=== PATIENT | female | born 1995 | race Caucasian/White ===

== ENCOUNTER 2017-06-14 02:06 | Emergency (ER) | payer OTHER ==
[~2017-06-14] VITALS: Ht 160 cm; Wt 53.4 kg
[~2017-06-14 02:06] MED LIST: INSU100C4 MC; ZOL50T PO
[2017-06-14] MEDS ORDERED: insulin Lispro (HumaLOG) vial - multi-dose SQ STA (02:24)
[2017-06-14] MEDS ORDERED: ondansetron 4mg rapidly disintigrating tab PO ONE (02:25)
[2017-06-14] MEDS ORDERED: insulin Lispro (HumaLOG) vial - multi-dose SQ ONE (02:37)
[2017-06-14 02:40] LABS: BASOPHILS # (AUTO) 0.1 X10'3 (0-0.2); BASOPHILS % (AUTO) 0.6 % (0-1); EOSINOPHILS # (AUTO) 0.2 X10'3 (0-0.9); EOSINOPHILS % (AUTO) 1.9 % (0-6); HEMATOCRIT 38.8 % (35.0-45.0); HEMOGLOBIN 13.3 g/dl (12.0-16.0); LYMPHOCYTES # (AUTO) 3.7 X10'3 (1.1-4.8); MEAN CORPUSCULAR HEMOGLOBIN 29.6 PG (27.0-31.0); MEAN CORPUSCULAR HGB CONC 34.2 % (33.0-36.5); MEAN CORPUSCULAR VOLUME 86.4 FL (78-98); MEAN PLATELET VOLUME 8.1 FL (7.4-10.4); MONOCYTES # (AUTO) 0.8 X10'3 (0-0.9); MONOCYTES % (AUTO) 8.6 % (2-12); NEUTROPHILS # (AUTO) 4.3 X10'3 (1.8-7.7); NEUTROPHILS % (AUTO) 47.9 % (42-75); PLATELET COUNT 370 X10'3 (140-440); RED BLOOD COUNT 4.48 X10'6 (4.20-5.60); RED CELL DISTRIBUTION WIDTH 13.6 % (11.5-14.5); WHITE BLOOD COUNT 9.1 X10'3 (4.5-11.0)
[2017-06-14 02:54] LABS: ALANINE AMINOTRANSFERASE 29 U/L (12-78); ALBUMIN/GLOBULIN RATIO 1.1 (1.1-1.5); ALKALINE PHOSPHATASE 127 IU/L (46-116); ANION GAP 12 (8-16); ASPARTATE AMINO TRANSFERASE 12 U/L (10-37); BILIRUBIN,TOTAL 0.4 MG/DL (0.1-1.0); BLOOD UREA NITROGEN 15 MG/DL (7-18); BUN/CREATININE RATIO 15.6 (6.6-38.0); CALCIUM 9.2 MG/DL (8.5-10.1); CHLORIDE 95 MMOL/L (99-107); CREATININE 0.96 MG/DL (0.40-0.90); MAGNESIUM 1.7 MG/DL (1.5-2.4); POTASSIUM 4.5 MMOL/L (3.5-5.1); SODIUM 131 MMOL/L (135-145); TOTAL CARBON DIOXIDE 23.7 MMOL/L (24-32); TOTAL PROTEIN 7.5 G/DL (6.4-8.2); eGFR 71 ML/MIN
[2017-06-14 02:58] LABS: GLUCOSE 670 MG/DL (70-104)
[2017-06-14] MEDS ORDERED: insulin Lispro (HumaLOG) vial - multi-dose SQ SCH (03:40)
[2017-06-14] MEDS ORDERED: INSU100V13 SQ (04:44)
[2017-06-14 04:49] VITALS: BP 106/63
== END 2017-06-14 04:51 | disposition home or self-care (01) ==
LOC: ER 02:07
DX: E10.65 Type 1 diabetes mellitus with hyperglycemia (principal); Z96.41 Presence of insulin pump (external) (internal); Z79.4 Long term (current) use of insulin
CPT/HCPCS: 36415; 80053; 82009; 82948; 83735; 85025; 96372; 99284; J7030

== ENCOUNTER 2017-07-11 08:03 | Emergency (ER) | payer OTHER ==
[~2017-07-11] VITALS: Ht 162.6 cm; Wt 50.0 kg
[~2017-07-11 08:03] MED LIST changes: +INSU100V13 SQ; +ONDA8TAB9 PO; +SULF1TAB49 PO
[2017-07-11 08:32] LABS: BASOPHILS % (AUTO) 0.2 % (0-1); EOSINOPHILS # (AUTO) 0.1 X10'3 (0-0.9); EOSINOPHILS % (AUTO) 2.1 % (0-6); HEMATOCRIT 37.8 % (35.0-45.0); LYMPHOCYTES # (AUTO) 3.1 X10'3 (1.1-4.8); LYMPHOCYTES % (AUTO) 44.3 % (21-51); MEAN CORPUSCULAR HEMOGLOBIN 29.3 PG (27.0-31.0); MEAN CORPUSCULAR HGB CONC 34.5 % (33.0-36.5); MEAN PLATELET VOLUME 7.2 FL (7.4-10.4); MONOCYTES # (AUTO) 0.6 X10'3 (0-0.9); MONOCYTES % (AUTO) 8.5 % (2-12); NEUTROPHILS # (AUTO) 3.1 X10'3 (1.8-7.7); NEUTROPHILS % (AUTO) 44.9 % (42-75); PLATELET COUNT 451 X10'3 (140-440); RED BLOOD COUNT 4.45 X10'6 (4.20-5.60); RED CELL DISTRIBUTION WIDTH 13.8 % (11.5-14.5)
[2017-07-11 08:40] LABS: PROTHROMBIN TIME 10.2 SECONDS (9.0-12.0)
[2017-07-11 08:53] LABS: ALANINE AMINOTRANSFERASE 32 U/L (12-78); ALBUMIN 3.2 G/DL (3.4-5.0); ALBUMIN/GLOBULIN RATIO 0.9 (1.1-1.5); ALKALINE PHOSPHATASE 47 IU/L (46-116); ANION GAP 12 (8-16); ASPARTATE AMINO TRANSFERASE 19 U/L (10-37); BILIRUBIN,TOTAL 0.3 MG/DL (0.1-1.0); BLOOD UREA NITROGEN 7 MG/DL (7-18); BUN/CREATININE RATIO 10.6 (6.6-38.0); CALCIUM 8.3 MG/DL (8.5-10.1); CHLORIDE 107 MMOL/L (99-107); CREATININE 0.66 MG/DL (0.40-0.90); GLUCOSE 121 MG/DL (70-104); POTASSIUM 3.9 MMOL/L (3.5-5.1); SODIUM 140 MMOL/L (135-145); TOTAL PROTEIN 6.9 G/DL (6.4-8.2); eGFR > 90 ML/MIN
[2017-07-11 08:59] LABS: URINE HCG NEGATIVE (NEG)
[2017-07-11 09:03] LABS: CLARITY,URINE SLIGHTLY CLOUDY (Clear); COLOR,URINE YELLOW (Yellow); GLUCOSE, URINE NEGATIVE (Neg); KETONES,URINE NEGATIVE (Neg); LEUKOCYTE ESTERASE ,URINE NEGATIVE (Neg); NITRITES, URINE NEGATIVE (Neg); OCCULT BLOOD,URINE NEGATIVE (Neg); PROTEIN,URINE NEGATIVE (Neg); UA COLLECTION TYPE CLN CATCH MIDSTREAM; UROBILINOGEN,URINE 0.2 E.U/dL (0.2-1.0)
[2017-07-11 09:13] LABS: BACTERIA,URINE FEW /HPF (Neg); CAL OXALATE CRYSTALS 2+ /HPF (NEGATIVE); MUCUS STRANDS MODERATE /LPF (Neg); SQUAMOUS EPITHELIAL CELL,UR MANY /LPF (FEW)
[2017-07-11 09:14] LABS: RBC,URINE 0-2 /HPF (0-2); WBC,URINE 0-4 /HPF (0-4)
[2017-07-11] MEDS ORDERED: ACET1TAB12 PO (11:51)
[2017-07-11 12:00] VITALS: BP 112/74
== END 2017-07-11 12:00 | disposition home or self-care (01) ==
LOC: ER 08:03
DX: R10.30 Lower abdominal pain, unspecified (principal); R19.7 Diarrhea, unspecified; E11.9 Type 2 diabetes mellitus without complications; Z79.4 Long term (current) use of insulin; Z79.899 Other long term (current) drug therapy
CPT/HCPCS: 36415; 80053; 81001; 81025; 85025; 85610; 99284

== ENCOUNTER 2017-09-14 16:17 | Emergency (ER) | payer OTHER ==
[~2017-09-14] VITALS: Ht 5283.9 cm; Wt 51.0 kg
[~2017-09-14 16:17] MED LIST changes: +ACET1TAB12 PO; -SULF1TAB49 PO
[2017-09-14 16:22] VITALS: BP 124/81
[2017-09-14] MEDS ORDERED: insulin regular, human 10 units/0.1 ml syringe SQ ONE (17:20)
[2017-09-14] MEDS ORDERED: INSU100C4 MC (17:22)
== END 2017-09-14 17:44 | disposition home or self-care (01) ==
LOC: ER 16:18
DX: E10.65 Type 1 diabetes mellitus with hyperglycemia (principal); Z79.4 Long term (current) use of insulin; Z76.0 Encounter for issue of repeat prescription; Z79.899 Other long term (current) drug therapy
CPT/HCPCS: 82948; 96372; 99283; J1815

== ENCOUNTER 2024-10-10 03:30 | Emergency (ER) | payer OTHER ==
[~2024-10-10] VITALS: Ht 162.6 cm; Wt 35.8 kg
[~2024-10-10 03:30] MED LIST changes: +SERT-153 PO; -ZOL50T PO
[2024-10-10] MEDS: LORazepam 1 MG tablet PO ONE (04:48)
[2024-10-10] MEDS: ketorolac trometh 30MG/ML vial 30 MG/ML VIAL IM ONE (04:48)
[2024-10-10] MEDS: ondansetron/PF 4mg/2ml inj IV ONE (04:58)
--- NOTE | 2024-10-10 05:05 | Physician Documentation ---
History of Present Illness ~ Chief Complaint: Abdominal Pain Stated Complaint: ABDOMINAL PAIN Time Seen by MD: 04:44 Primary Medical Doctor: NONE HPI 29 year old female reports abdominal cramping, diarrhea. She also reports she is on her menstrual period. Denies fever, reports +nausea. Medication Reconciliation Allergies: Coded Allergies: No Known Allergies (Unverified , 10/10/24) Scheduled Acetaminophen with Codeine (Tylenol with Codeine #3 Tablet), 1 TAB PO Q4HPRN Insulin Aspart (Novolog), 1 UNITS SQ UD Insulin Aspart (Novolog), 50 UNIT MC DAILY Ondansetron (Zofran Odt), 1 TAB PO Q8H Sertraline HCl (Sertraline HCl), 1 TABLET PO QPM, (Reported) Past Medical History Past Medical History: UTI, Diabetes Past Surgical History: Alcohol Use: None Drug Use: none Lives with: Mother, Father Lives In: Home Occupation: student Review of Systems All Other Systems at this time: Reviewed and Negative Physical Exam Vital Signs: RN Vital Signs have been reviewed: Yes, Temperature: 96.8, Source: Temporal, Heart Rate: 88, Respiratory Rate: 18, BP: 146/63, Pulse Oximetry: 99, Weight: 35.800 Physical Exam HEENT: PERRL, moist oral mucosa, EOMI Pulmonary: No respiratory distress CTAB Cardiac: RRR, no murmur, rub or gallop GI: nondistended, soft, diffusely tender, no guarding, no rebound MSK: no deformity Skin: w/d/i, no rash Neuro: alert, nonfocal Psych: normal affect Progress Results/Orders Results/Orders Orders - SHARONA UNDERWOOD MD Urinalysis, Cult If Indicated (10/10/24 03:55) Hcg, Ur Ql (10/10/24 03:55) Normal Saline 1000ml (Sodium Chloride 10 (10/10/24 05:45) Ct Abdomen Pelvis (10/10/24 05:44) Completed Orders - SHARONA UNDERWOOD MD Cbc/Diff (10/10/24 03:55) BMP (10/10/24 03:55) Lipase (10/10/24 03:55) CMP (10/10/24 03:55) Ketorolac Trometh 30mg/Ml Vial (Toradol (10/10/24 04:15) Lorazepam Tablet (Ativan Tablet) (10/10/24 04:45) Ondansetron Inj. (Zofran 4mg/2ml Vial) (10/10/24 04:55) Medications Received in ER Medications (Trade) Dose Ordered Sig/Juancho Route PRN Reason Start Time Stop Time Status Last Admin Dose Admin (Toradol inj. 30mg/ml) 30 mg ONCE ONCE IM 10/10/24 04:15 10/10/24 04:16 DC 10/10/24 04:48 30 MG (Ativan tablet) 1 mg ONCE ONCE PO 10/10/24 04:45 10/10/24 04:46 DC 10/10/24 04:48 1 MG (Zofran 4mg/2ml vial) 4 mg ONCE ONCE IV 10/10/24 04:55 10/10/24 04:56 DC 10/10/24 04:58 4 MG Vital Signs 10/10/24 10/10/24 10/10/24 10/10/24 03:53 04:48 05:43 05:44 Temp 96.8 Pulse 88 98 Resp 15 18 15 18 B/P (MAP) 146/63 93/54 (67) Pulse Ox 99 97 Laboratory Tests Test 10/10/24 04:55 White Blood Count 18.4 H Red Blood Count 4.45 Hemoglobin 13.1 Hematocrit 39.0 Mean Corpuscular Volume 87.6 Mean Corpuscular Hemoglobin 29.3 Mean Corpuscular Hemoglobin Concent 33.5 Red Cell Distribution Width 12.9 Platelet Count 431 Mean Platelet Volume 8.4 Neutrophils (%) (Auto) 83.2 H Lymphocytes (%) (Auto) 10.5 L Monocytes (%) (Auto) 5.8 Eosinophils (%) (Auto) 0.2 Basophils (%) (Auto) 0.3 Neutrophils # (Auto) 15.3 H Lymphocytes # (Auto) 1.9 Monocytes # (Auto) 1.1 H Eosinophils # (Auto) 0.0 Basophils # (Auto) 0.1 CBC Comment Sodium Level 144 Potassium Level 4.0 Chloride Level 106 Carbon Dioxide Level 25.3 Anion Gap 13 Blood Urea Nitrogen 12 Creatinine 0.87 Estimated GFR/1.73 m2 76 BUN/Creatinine Ratio 13.8 Glucose Level 123 H Calcium Level 9.7 Total Bilirubin 0.5 Aspartate Amino Transf (AST/SGOT) 34 Alanine Aminotransferase (ALT/SGPT) 33 Alkaline Phosphatase 69 Total Protein 7.5 Albumin 4.0 Globulin 3.5 Albumin/Globulin Ratio 1.1 Lipase 15 L Chemistry Comments Medical Decision Making Findings 29 year old female with abdominal pain. IVF and meds, labs demonstrated leukocytosis. Pending UA and CT abdomen/pelvis, will sign out to oncoming ER physician. Additional Comments Ddx = , menstrual cramps, gastroenteritis, UTI, appendicitis, ectopic , pyelonephritis Departure Impression: Primary Impression: Abdominal pain Referrals: NO PRIMARY CARE PROVIDER (PCP) Education Educated: Patient Signature Scribe Signature: . Attestation: . SHARONA UNDERWOOD MD Oct 10, 2024 05:05
[2024-10-10 05:25] LABS: BASOPHILS # (AUTO) 0.1 X10'3 (0-0.2); BASOPHILS % (AUTO) 0.3 % (0-1); EOSINOPHILS % (AUTO) 0.2 % (0-6); HEMOGLOBIN 13.1 g/dl (12.0-16.0); LYMPHOCYTES # (AUTO) 1.9 X10'3 (1.1-4.8); LYMPHOCYTES % (AUTO) 10.5 % (21-51); MEAN CORPUSCULAR HEMOGLOBIN 29.3 PG (27.0-31.0); MEAN CORPUSCULAR HGB CONC 33.5 g/dL (33.0-36.5); MEAN CORPUSCULAR VOLUME 87.6 FL (78-98); MEAN PLATELET VOLUME 8.4 FL (7.4-10.4); MONOCYTES # (AUTO) 1.1 X10'3 (0-0.9); MONOCYTES % (AUTO) 5.8 % (2-12); NEUTROPHILS # (AUTO) 15.3 X10'3 (1.8-7.7); NEUTROPHILS % (AUTO) 83.2 % (42-75); PLATELET COUNT 431 X10'3 (140-440); RED BLOOD COUNT 4.45 X10'6 (4.20-5.60); RED CELL DISTRIBUTION WIDTH 12.9 % (11.5-14.5); WHITE BLOOD COUNT 18.4 X10'3 (4.5-11.0)
[2024-10-10 05:41] LABS: ALANINE AMINOTRANSFERASE 33 U/L (12-78); ALBUMIN/GLOBULIN RATIO 1.1 (1.1-1.5); ALKALINE PHOSPHATASE 69 IU/L (46-116); ANION GAP 13 (8-16); ASPARTATE AMINO TRANSFERASE 34 U/L (10-37); BILIRUBIN,TOTAL 0.5 MG/DL (0.1-1.0); BLOOD UREA NITROGEN 12 MG/DL (7-18); BUN/CREATININE RATIO 13.8 (10.0-20.0); CALCIUM 9.7 MG/DL (8.5-10.1); CHLORIDE 106 MMOL/L (99-107); CREATININE 0.87 MG/DL (0.40-0.90); GLUCOSE 123 MG/DL (70-104); LIPASE 15 U/L (16-77); SODIUM 144 MMOL/L (135-145); TOTAL CARBON DIOXIDE 25.3 MMOL/L (24-32); TOTAL PROTEIN 7.5 G/DL (6.4-8.2); eCRCL 53 ML/MIN; eGFR 76 ML/MIN
[2024-10-10] MEDS: normal saline 1000ml 1,000 ML IV ONE (05:53)
[2024-10-10 07:30] LABS: HCG SERUM QL NEGATIVE
[2024-10-10] MEDS ORDERED: iohexol 300mg/ml 100ml inj. ONE (07:39)
[2024-10-10 07:58] LABS: BILIRUBIN,URINE SMALL (Neg); CLARITY,URINE CLEAR (Clear); COLOR,URINE YELLOW (Yellow); GLUCOSE, URINE NEGATIVE (Neg); KETONES,URINE 15 mg/dl (Neg); LEUKOCYTE ESTERASE ,URINE NEGATIVE (Neg); NITRITES, URINE NEGATIVE (Neg); OCCULT BLOOD,URINE MODERATE (Neg); PH,URINE 6.5 (4.8-8.0); PROTEIN,URINE 30 mg/dl (Neg)
[2024-10-10 08:05] LABS: UA COLLECTION TYPE CLN CATCH MIDSTREAM
[2024-10-10 08:07] LABS: BACTERIA,URINE NONE SEEN /HPF (Neg); MUCUS STRANDS FEW /LPF (Neg); RBC,URINE 0-2 /HPF (0-2); SQUAMOUS EPITHELIAL CELL,UR FEW /LPF (FEW); WBC,URINE 0-4 /HPF (0-4)
--- NOTE | 2024-10-10 08:19 | RADIOLOGY REPORT ---
EXAM: CT Abdomen and Pelvis With Intravenous Contrast CLINICAL INDICATION: abdominal pain TECHNIQUE: Axial computed tomography images of the abdomen and pelvis with intravenous contrast. Th is CT exam was performed using one or more of the following dose reduction techniques: automated exp osure control, adjustment of the mA and/or kV according to patient size, and/or use of iterative naveen nstruction technique. CONTRAST: COMPARISON: None FINDINGS: LUNG BASES: Unremarkable. No mass. No consolidation. MEDIASTINUM: Small esophageal hiatal hernia. ABDOMEN: LIVER: Enlarged fatty liver. GALLBLADDER AND BILE DUCTS: Unremarkable. No calcified stones. No ductal dilation. PANCREAS: Unremarkable. No mass. No ductal dilation. SPLEEN: Unremarkable. No splenomegaly. ADRENALS: Unremarkable. No mass. KIDNEYS AND URETERS: Unremarkable. No solid mass. No hydronephrosis. STOMACH AND BOWEL: Fecal retention in the colon consistent with constipation. No obstruction. No mucosal thickening. PELVIS: APPENDIX: Appendix is not clearly visualized. No significant fat stranding in the right lower abdom inal quadrant to suggest acute inflammation. BLADDER: Unremarkable. No mass. REPRODUCTIVE: Unremarkable as visualized. ABDOMEN and PELVIS: INTRAPERITONEAL SPACE: Unremarkable. No free air. No significant fluid collection. BONES/JOINTS: No acute fracture. No dislocation. SOFT TISSUES: Umbilical hernia containing fat. VASCULATURE: Unremarkable. No abdominal aortic aneurysm. LYMPH NODES: Unremarkable. No enlarged lymph nodes. OTHER FINDINGS: . IMPRESSION: 1. Small esophageal hiatal hernia. 2. Fecal retention in the colon consistent with constipation. 3. Umbilical hernia containing fat. 4. Appendix is not clearly visualized. No significant fat stranding in the right lower abdominal norma drant to suggest acute inflammation.
[2024-10-10] MEDS: lactulose 20gm/30ml cup PO ONE (09:52)
[2024-10-10] MEDS: bisacodyl 10mg suppository rectal RC ONE (09:52)
[2024-10-10 10:58] VITALS: BP 128/88; PULSE 80; RESP 16; TEMP 98.1; O2SAT 99
== END 2024-10-10 11:02 | disposition home or self-care (01) ==
LOC: ER 03:30
DX: R10.84 Generalized abdominal pain (principal); R11.0 Nausea; R19.7 Diarrhea, unspecified; E11.9 Type 2 diabetes mellitus without complications; Z79.899 Other long term (current) drug therapy
CPT/HCPCS: 36415; 74177; 80053; 81001; 83690; 84703; 85025; 96361; 96372; 96374; 99285; J1885; J2405; J7030; Q9967